=== PATIENT | male | born 1970 | race Caucasian/White ===

== ENCOUNTER 2017-05-17 11:59 | Inpatient (IN) | payer OTHER ==
[~2017-05-17] VITALS: Ht 167.6 cm; Wt 77.6 kg
[2017-05-17 12:04] VITALS: BP 131/98
[2017-05-17 12:18] LABS: BILIRUBIN NEGATIVE (NEGATIVE); BLOOD 1+ (NEGATIVE); CLARITY CLEAR (CLEAR); COLOR YELLOW (YELLOW); GLUCOSE NEGATIVE (NEGATIVE); KETONE NEGATIVE (NEGATIVE); LEUKO ESTERASE TRACE (NEGATIVE); NITRITE NEGATIVE (NEGATIVE); PH 6.5 (5.0-9.0); PROTEIN TRACE (NEGATIVE); SPECIFIC GRAVITY 1.015 (1.005-1.030); UROBILINOGEN 0.2 E.U./dl (0.2-1.0)
[2017-05-17 12:23] LABS: BASO # 0.1 10*3/uL (0.0-0.1); BASO % 0.4 % (0.0-1.0); EOS # 0.1 10*3/uL (0.0-0.4); EOS % 0.3 % (1.0-4.0); HEMATOCRIT 47.2 % (42.0-52.0); HEMOGLOBIN 15.9 g/dl (14.0-18.0); IG # 0.1 10*3/uL (0.0-0.1); LYMPH % 12.7 % (27.0-41.0); MEAN CELL VOLUME 89.2 fl (80.0-94.0); MEAN CORPUSCULAR HGB 30.1 pg (27.0-31.0); MEAN CORPUSCULAR HGB CONC 33.7 g/dl (33.0-37.0); MEAN PLATELET VOLUME 11.1 fl (9.6-12.3); MONO # 1.3 10*3/uL (0.1-1.0); MONO % 8.2 % (3.0-9.0); NEUT # 12.4 10*3/uL (2.3-7.9); NEUT % 78.1 % (47.0-73.0); PLATELET COUNT AUTOMATED 231 10*3/uL (130-400); RED BLOOD COUNT 5.29 10*6/uL (4.50-5.90); RED CELL DISTRI WIDTH 12.9 % (0-14.5); WHITE BLOOD COUNT 15.9 10*3/uL (4.8-10.8)
[2017-05-17 12:38] LABS: BACTERIA TRACE
[2017-05-17 12:39] LABS: URINE REFLEX COMMENT YES (NO)
[2017-05-17 12:43] LABS: ALBUMIN 4.1 gm/dl (3.1-4.5); ALKALINE PHOSPHATASE 70 U/L (45-117); BUN 13 mg/dl (7-24); C-REACTIVE PROTEIN 2.02 MG/DL (0-0.3); CARBON DIOXIDE 23 mmol/L (21-32); CHLORIDE 108 mmol/L (98-107); EST GLOM FILT AFRICAN AMERICAN > 60 ml/min; GLUCOSE 131 mg/dL (65-99); POTASSIUM 3.6 mmol/L (3.5-5.1); SGOT/AST 16 IU/L (3-35); SGPT/ALT 19 U/L (12-78); SODIUM 137 mmol/L (136-145); TOTAL PROTEIN 7.7 gm/dL (6.4-8.2)
[2017-05-17 14:38] VITALS: BP 160/90
[2017-05-17 16:00] VITALS: BP 113/73
[2017-05-17 20:00] VITALS: BP 118/83
[2017-05-18] VITALS: BP 123/75
[2017-05-18 06:25] LABS: BASO # 0.1 10*3/uL (0.0-0.1); BASO % 0.5 % (0.0-1.0); EOS # 0.1 10*3/uL (0.0-0.4); EOS % 1.3 % (1.0-4.0); LYMPH # 2.5 10*3/uL (1.3-4.4); LYMPH % 25.5 % (27.0-41.0); MEAN CELL VOLUME 90.5 fl (80.0-94.0); MEAN CORPUSCULAR HGB 30.3 pg (27.0-31.0); MEAN CORPUSCULAR HGB CONC 33.4 g/dl (33.0-37.0); MONO % 9.8 % (3.0-9.0); NEUT # 6.2 10*3/uL (2.3-7.9); NEUT % 62.6 % (47.0-73.0); PLATELET COUNT AUTOMATED 174 10*3/uL (130-400); RED BLOOD COUNT 4.33 10*6/uL (4.50-5.90); WHITE BLOOD COUNT 9.8 10*3/uL (4.8-10.8)
[2017-05-18 06:29] LABS: HEMATOCRIT 39.2 % (42.0-52.0); HEMOGLOBIN 13.1 g/dl (14.0-18.0)
[2017-05-18 06:41] LABS: ALBUMIN 2.9 gm/dl (3.1-4.5); ALKALINE PHOSPHATASE 54 U/L (45-117); BUN 12 mg/dl (7-24); CARBON DIOXIDE 22 mmol/L (21-32); CHLORIDE 112 mmol/L (98-107); CHOLESTEROL 122 mg/dL (<200); EST GLOM FILT AFRICAN AMERICAN > 60 ml/min; GLUCOSE 84 mg/dL (65-99); HDL CHOLESTEROL 39 mg/dl (40-60); LDL CHOLESTEROL 69 mg/dL (9-159); MAGNESIUM 2.1 mg/dL (1.5-2.1); PHOSPHOROUS 2.1 mg/dL (2.5-4.9); POTASSIUM 3.8 mmol/L (3.5-5.1); SGOT/AST 12 IU/L (3-35); SGPT/ALT 12 U/L (12-78); SODIUM 140 mmol/L (136-145); TRIGLYCERIDES 69 mg/dl (<150); VLDL CHOLESTEROL 14 mg/dL (6-40)
[2017-05-18 06:50] LABS: PROTHROMBIN TIME 10.7 SECONDS (9.0-12.4)
[2017-05-18 07:33] LABS: HEMOGLOBIN A1c 5.7 % (4.8-5.6)
[2017-05-18 08:00] VITALS: BP 124/69
[2017-05-18 09:23] LABS: FOLIC ACID 12.37 ng/mL (>5.38); VITAMIN D, 25-HYDROXY 24.4 ng/mL (30-100)
[2017-05-18 12:00] VITALS: BP 124/69
[2017-05-18 16:00] VITALS: BP 135/81
[2017-05-18 20:00] VITALS: BP 141/80
[2017-05-19] VITALS: BP 120/72
[2017-05-19 04:00] VITALS: BP 116/76
[2017-05-19 07:10] LABS: BASO % 0.5 % (0.0-1.0); EOS # 0.2 10*3/uL (0.0-0.4); EOS % 2.3 % (1.0-4.0); LYMPH # 2.4 10*3/uL (1.3-4.4); LYMPH % 32.6 % (27.0-41.0); MEAN CELL VOLUME 91.5 fl (80.0-94.0); MEAN CORPUSCULAR HGB 30.5 pg (27.0-31.0); MEAN CORPUSCULAR HGB CONC 33.3 g/dl (33.0-37.0); MONO # 0.8 10*3/uL (0.1-1.0); MONO % 11.5 % (3.0-9.0); NEUT # 3.9 10*3/uL (2.3-7.9); PLATELET COUNT AUTOMATED 169 10*3/uL (130-400); RED BLOOD COUNT 4.26 10*6/uL (4.50-5.90); RED CELL DISTRI WIDTH 12.5 % (0-14.5); WHITE BLOOD COUNT 7.3 10*3/uL (4.8-10.8)
[2017-05-19 07:23] LABS: BUN 10 mg/dl (7-24); CARBON DIOXIDE 24 mmol/L (21-32); CHLORIDE 109 mmol/L (98-107); EST GLOM FILT AFRICAN AMERICAN > 60 ml/min; GLUCOSE 84 mg/dL (65-99); PHOSPHOROUS 2.4 mg/dL (2.5-4.9); POTASSIUM 3.9 mmol/L (3.5-5.1); SODIUM 141 mmol/L (136-145)
[2017-05-19 08:01] VITALS: BP 120/75
[2017-05-19] MEDS ORDERED: CIPRO500 MG PO (11:44)
[2017-05-19] MEDS ORDERED: FLAGYL500 MG PO (11:44)
[2017-05-19 12:02] VITALS: BP 114/71
== END 2017-05-19 15:39 | disposition home or self-care (01) | DRG 872 ==
LOC: ED 11:59 → EDHOLD 14:22 → 5E 14:22
PROVIDERS: Internal Medicine Nephrology; Nurse Practitioner Family
DX: A41.9 Sepsis, unspecified organism (principal); E87.8 Other disorders of electrolyte and fluid balance, not elsewhere classified; E44.0 Moderate protein-calorie malnutrition; K57.32 Diverticulitis of large intestine without perforation or abscess without bleeding; E83.39 Other disorders of phosphorus metabolism; R03.0 Elevated blood-pressure reading, without diagnosis of hypertension; E66.3 Overweight; R73.03 Prediabetes; Z72.0 Tobacco use; Z71.6 Tobacco abuse counseling; Z68.27 Body mass index [BMI] 27.0-27.9, adult; Z82.49 Family history of ischemic heart disease and other diseases of the circulatory system; Z80.9 Family history of malignant neoplasm, unspecified

== ENCOUNTER 2021-04-28 20:07 | Inpatient (IN) | payer OTHER ==
[~2021-04-28] VITALS: Ht 167.6 cm; Wt 74.9 kg
[~2021-04-28 20:07] MED LIST: CIPRO500 MG PO; FLAGYL500 MG PO
[2021-04-28 20:10] VITALS: BP 149/85
[2021-04-28 21:00] LABS: BASO # 0.1 10*3/uL (0.0-0.1); BASO % 0.7 % (0.0-1.0); EOS # 0.1 10*3/uL (0.0-0.4); EOS % 0.9 % (1.0-4.0); HEMATOCRIT 44.2 % (42.0-52.0); LYMPH # 2.2 10*3/uL (1.3-4.4); LYMPH % 25.8 % (27.0-41.0); MEAN CELL VOLUME 87.5 fl (80.0-94.0); MEAN CORPUSCULAR HGB 29.5 pg (27.0-31.0); MEAN CORPUSCULAR HGB CONC 33.7 g/dl (33.0-37.0); MEAN PLATELET VOLUME 11.2 fl (9.6-12.3); MONO # 0.7 10*3/uL (0.1-1.0); MONO % 8.5 % (3.0-9.0); NEUT # 5.5 10*3/uL (2.3-7.9); NEUT % 63.9 % (47.0-73.0); PLATELET COUNT AUTOMATED 212 10*3/uL (130-400); RED BLOOD COUNT 5.05 10*6/uL (4.50-5.90); RED CELL DISTRI WIDTH 12.7 % (0-14.5); WHITE BLOOD COUNT 8.7 10*3/uL (4.8-10.8)
[2021-04-28 21:16] LABS: ALBUMIN 4.1 gm/dl (3.1-4.5); ALKALINE PHOSPHATASE 63 U/L (45-117); BUN 14 mg/dl (7-24); CHLORIDE 107 mmol/L (98-107); CREATININE 1.27 mg/dL (0.70-1.30); LIPASE 117 U/L (73-393); POTASSIUM 3.5 mmol/L (3.5-5.1); SGOT/AST 17 IU/L (3-35); SGPT/ALT 20 U/L (12-78); SODIUM 137 mmol/L (136-145); TOTAL PROTEIN 7.8 gm/dL (6.4-8.2)
[2021-04-29] VITALS (12 sets, daily range): BP systolic 112–135; BP diastolic 68–89
[2021-04-29 02:29] LABS: BILIRUBIN Negative (Negative); BLOOD Negative (Negative); CLARITY Turbid (Clear); COLOR Yellow (Yellow); GLUCOSE Negative (Negative); KETONE 1+ (Negative); LEUKO ESTERASE Negative (Negative); NITRITE Negative (Negative); SPECIFIC GRAVITY 1.015 (1.001-1.030)
[2021-04-29 03:02] LABS: BACTERIA TRACE; RBC 21-30 rbc/hpf (0-2)
[2021-04-29 06:15] LABS: ALBUMIN 3.4 gm/dl (3.1-4.5); ALKALINE PHOSPHATASE 47 U/L (45-117); BUN 13 mg/dl (7-24); CHLORIDE 111 mmol/L (98-107); CHOLESTEROL 127 mg/dL (<200); CREATININE 0.91 mg/dL (0.70-1.30); LDL CHOLESTEROL 80 mg/dL (9-159); POTASSIUM 3.6 mmol/L (3.5-5.1); SGOT/AST 13 IU/L (3-35); SGPT/ALT 16 U/L (12-78); SODIUM 138 mmol/L (136-145); TOTAL PROTEIN 6.5 gm/dL (6.4-8.2); TRIGLYCERIDES 27 mg/dl (<150)
[2021-04-29 06:38] LABS: HEMATOCRIT 44.5 % (42.0-52.0); MEAN CORPUSCULAR HGB 29.9 pg (27.0-31.0); MEAN CORPUSCULAR HGB CONC 32.8 g/dl (33.0-37.0); MEAN PLATELET VOLUME 11.6 fl (9.6-12.3); PLATELET COUNT AUTOMATED 173 10*3/uL (130-400); RED BLOOD COUNT 4.89 10*6/uL (4.50-5.90); WHITE BLOOD COUNT 9.2 10*3/uL (4.8-10.8)
[2021-04-29 07:38] LABS: PLATELET SUFFICIENCY NORMAL (NORMAL); TOTAL CELLS COUNTED 100 #CELLS
[2021-04-29 08:37] LABS: VITAMIN D, 25-HYDROXY 33.1 ng/mL (30-100)
[2021-04-30] VITALS: BP 120/72
[2021-04-30 06:35] LABS: ALBUMIN 2.8 gm/dl (3.1-4.5); BUN 17 mg/dl (7-24); CHLORIDE 108 mmol/L (98-107); POTASSIUM 4.2 mmol/L (3.5-5.1); SGOT/AST 15 IU/L (3-35); SGPT/ALT 14 U/L (12-78); SODIUM 134 mmol/L (136-145); TOTAL PROTEIN 6.4 gm/dL (6.4-8.2)
[2021-04-30 06:36] LABS: ALKALINE PHOSPHATASE 42 U/L (45-117)
[2021-04-30 06:55] LABS: BASO % 0.1 % (0.0-1.0); HEMATOCRIT 40.1 % (42.0-52.0); LYMPH # 1.1 10*3/uL (1.3-4.4); LYMPH % 7.7 % (27.0-41.0); MEAN CELL VOLUME 92.6 fl (80.0-94.0); MEAN CORPUSCULAR HGB 29.8 pg (27.0-31.0); MEAN CORPUSCULAR HGB CONC 32.2 g/dl (33.0-37.0); MEAN PLATELET VOLUME 11.9 fl (9.6-12.3); MONO # 0.9 10*3/uL (0.1-1.0); NEUT # 12.2 10*3/uL (2.3-7.9); NEUT % 85.8 % (47.0-73.0); PLATELET COUNT AUTOMATED 164 10*3/uL (130-400); RED BLOOD COUNT 4.33 10*6/uL (4.50-5.90); RED CELL DISTRI WIDTH 13.2 % (0-14.5); WHITE BLOOD COUNT 14.2 10*3/uL (4.8-10.8)
[2021-04-30 08:00] VITALS: BP 143/84
[2021-04-30 09:07] LABS: ACID FAST SPEC PROCESSING Direct Inoculation (.)
[2021-04-30 12:00] VITALS: BP 140/87
[2021-04-30 16:00] VITALS: BP 142/80
[2021-04-30 20:00] VITALS: BP 150/84
[2021-05-01] VITALS: BP 153/81
[2021-05-01 06:34] LABS: BASO % 0.1 % (0.0-1.0); HEMATOCRIT 43.9 % (42.0-52.0); LYMPH # 0.9 10*3/uL (1.3-4.4); LYMPH % 6.2 % (27.0-41.0); MEAN CELL VOLUME 90.7 fl (80.0-94.0); MEAN CORPUSCULAR HGB 29.5 pg (27.0-31.0); MEAN CORPUSCULAR HGB CONC 32.6 g/dl (33.0-37.0); MEAN PLATELET VOLUME 11.7 fl (9.6-12.3); MONO # 0.7 10*3/uL (0.1-1.0); MONO % 5.2 % (3.0-9.0); NEUT # 12.6 10*3/uL (2.3-7.9); NEUT % 88.1 % (47.0-73.0); PLATELET COUNT AUTOMATED 196 10*3/uL (130-400); RED BLOOD COUNT 4.84 10*6/uL (4.50-5.90); WHITE BLOOD COUNT 14.3 10*3/uL (4.8-10.8)
[2021-05-01 07:25] LABS: BUN 16 mg/dl (7-24); CHLORIDE 107 mmol/L (98-107); CREATININE 0.89 mg/dL (0.70-1.30); POTASSIUM 4.1 mmol/L (3.5-5.1); SODIUM 133 mmol/L (136-145)
[2021-05-01 08:00] VITALS: BP 162/91
[2021-05-01 16:00] VITALS: BP 158/91
[2021-05-01 18:00] VITALS: BP 158/91
[2021-05-01 20:00] VITALS: BP 146/86
[2021-05-02] VITALS: BP 155/94
[2021-05-02 06:33] LABS: BUN 14 mg/dl (7-24); CHLORIDE 106 mmol/L (98-107); CREATININE 0.71 mg/dL (0.70-1.30); SODIUM 132 mmol/L (136-145)
[2021-05-02 06:42] LABS: BASO % 0.1 % (0.0-1.0); EOS # 0.1 10*3/uL (0.0-0.4); EOS % 0.6 % (1.0-4.0); HEMATOCRIT 45.3 % (42.0-52.0); LYMPH # 1.6 10*3/uL (1.3-4.4); MEAN CELL VOLUME 89.7 fl (80.0-94.0); MEAN CORPUSCULAR HGB 29.7 pg (27.0-31.0); MEAN CORPUSCULAR HGB CONC 33.1 g/dl (33.0-37.0); MEAN PLATELET VOLUME 11.7 fl (9.6-12.3); MONO # 1.2 10*3/uL (0.1-1.0); NEUT # 10.5 10*3/uL (2.3-7.9); NEUT % 77.7 % (47.0-73.0); PLATELET COUNT AUTOMATED 219 10*3/uL (130-400); RED BLOOD COUNT 5.05 10*6/uL (4.50-5.90); RED CELL DISTRI WIDTH 13.1 % (0-14.5); WHITE BLOOD COUNT 13.5 10*3/uL (4.8-10.8)
[2021-05-02 08:00] VITALS: BP 138/92
[2021-05-02 12:00] VITALS: BP 159/98
[2021-05-02 16:00] VITALS: BP 140/96
[2021-05-02 20:00] VITALS: BP 146/88
[2021-05-03] VITALS: BP 157/91
[2021-05-03 08:00] VITALS: BP 166/90
[2021-05-03 12:00] VITALS: BP 162/90
[2021-05-03 16:00] VITALS: BP 160/86
[2021-05-03 20:00] VITALS: BP 123/67; BP 145/99
[2021-05-04] VITALS: BP 142/88
[2021-05-04 06:33] LABS: BUN 12 mg/dl (7-24); CHLORIDE 103 mmol/L (98-107); CREATININE 0.73 mg/dL (0.70-1.30); POTASSIUM 3.6 mmol/L (3.5-5.1); SODIUM 134 mmol/L (136-145)
[2021-05-04 06:57] LABS: HEMATOCRIT 42.6 % (42.0-52.0); MEAN CELL VOLUME 89.9 fl (80.0-94.0); MEAN CORPUSCULAR HGB 29.7 pg (27.0-31.0); MEAN CORPUSCULAR HGB CONC 33.1 g/dl (33.0-37.0); MEAN PLATELET VOLUME 11.4 fl (9.6-12.3); PLATELET COUNT AUTOMATED 228 10*3/uL (130-400); RED BLOOD COUNT 4.74 10*6/uL (4.50-5.90); WHITE BLOOD COUNT 15.1 10*3/uL (4.8-10.8)
[2021-05-04 08:00] VITALS: BP 144/90; BP 157/92
[2021-05-04 08:03] LABS: PLATELET SUFFICIENCY NORMAL (NORMAL); TOTAL CELLS COUNTED 100 #CELLS
[2021-05-04 12:00] VITALS: BP 154/90; BP 156/97
[2021-05-04 16:00] VITALS: BP 151/92
[2021-05-04 20:00] VITALS: BP 149/91
[2021-05-05] VITALS: BP 154/92
[2021-05-05 08:00] VITALS: BP 148/88
[2021-05-05 12:00] VITALS: BP 153/86
[2021-05-05 16:00] VITALS: BP 152/77
[2021-05-05 20:00] VITALS: BP 101/53; BP 124/61
[2021-05-06] VITALS: BP 109/60
[2021-05-06 06:44] LABS: BASO # 0.1 10*3/uL (0.0-0.1); BASO % 0.4 % (0.0-1.0); EOS # 0.3 10*3/uL (0.0-0.4); EOS % 2.5 % (1.0-4.0); HEMATOCRIT 39.6 % (42.0-52.0); LYMPH # 2.4 10*3/uL (1.3-4.4); LYMPH % 18.1 % (27.0-41.0); MEAN CORPUSCULAR HGB 29.5 pg (27.0-31.0); MEAN CORPUSCULAR HGB CONC 32.8 g/dl (33.0-37.0); MEAN PLATELET VOLUME 11.6 fl (9.6-12.3); MONO # 1.4 10*3/uL (0.1-1.0); MONO % 10.6 % (3.0-9.0); NEUT # 8.7 10*3/uL (2.3-7.9); NEUT % 66.3 % (47.0-73.0); PLATELET COUNT AUTOMATED 246 10*3/uL (130-400); RED CELL DISTRI WIDTH 13.4 % (0-14.5); WHITE BLOOD COUNT 13.2 10*3/uL (4.8-10.8)
[2021-05-06 07:01] LABS: BUN 10 mg/dl (7-24); CHLORIDE 106 mmol/L (98-107); CREATININE 0.67 mg/dL (0.70-1.30); POTASSIUM 3.9 mmol/L (3.5-5.1); SODIUM 134 mmol/L (136-145)
[2021-05-06 07:26] VITALS: BP 147/85
[2021-05-06] MEDS ORDERED: ZOFRAN4 MG PO (12:26)
[2021-05-06] MEDS ORDERED: Percocet 325 MG1 TAB PO (12:26)
[2021-05-06] MEDS ORDERED: COLACE100 MG PO (12:26)
[2021-05-06 12:38] VITALS: BP 143/874
== END 2021-05-06 17:18 | disposition home health service (06) | DRG 853 ==
LOC: ED 20:07 → EDHOLD 04-29 00:17 → 5E 04-29 00:17 → 4E 04-29 00:43 → 5E 04-29 01:26
PROVIDERS: Emergency Medicine; Internal Medicine; Physician Assistant; Registered Nurse; Social Worker Clinical; Surgery; ADMIT Internal Medicine; ATTEND Internal Medicine
PROC: 0DBN0ZZ Excision of Sigmoid Colon, Open Approach (ICD-10-PCS; principal; 2021-04-29)
PROC: 0D1N0Z4 Bypass Sigmoid Colon to Cutaneous, Open Approach (ICD-10-PCS; 2021-04-29)
PROC: 0WJG4ZZ Inspection of Peritoneal Cavity, Percutaneous Endoscopic Approach (ICD-10-PCS; 2021-04-29)
DX: A41.9 Sepsis, unspecified organism (principal); K65.9 Peritonitis, unspecified; K57.20 Diverticulitis of large intestine with perforation and abscess without bleeding; E87.1 Hypo-osmolality and hyponatremia; K91.31 Postprocedural partial intestinal obstruction; R00.0 Tachycardia, unspecified; R73.9 Hyperglycemia, unspecified; K52.9 Noninfective gastroenteritis and colitis, unspecified; D72.829 Elevated white blood cell count, unspecified; B96.1 Klebsiella pneumoniae [K. pneumoniae] as the cause of diseases classified elsewhere; D64.9 Anemia, unspecified; E83.41 Hypermagnesemia; E53.8 Deficiency of other specified B group vitamins; F17.210 Nicotine dependence, cigarettes, uncomplicated; Y83.8 Other surgical procedures as the cause of abnormal reaction of the patient, or of later complication, without mention of misadventure at the time of the procedure; Y92.238 Other place in hospital as the place of occurrence of the external cause; Z82.49 Family history of ischemic heart disease and other diseases of the circulatory system; Z80.8 Family history of malignant neoplasm of other organs or systems